=== PATIENT | female | born 1975 | race Caucasian/White ===

== ENCOUNTER 2016-10-05 16:17 | Emergency (ER) | payer MEDICAID ==
[~2016-10-05] VITALS: Ht 157.5 cm; Wt 113.0 kg
[~2016-10-05 16:17] MED LIST: BENA25CA2 PO; DIPH25CA PO; PRAV20TA2 PO; REME15TA PO
[2016-10-05 16:29] VITALS: BP 129/97; PULSE 88; RESP 16; TEMP 98.5; O2SAT 96
[2016-10-05] MEDS ORDERED: SODIUM CHLORIDE 0.9% FLUSH 10 ML FLUSH IVF PRN (17:45)
--- NOTE | 2016-10-05 17:46 | PD ---
HPI Chief Complaint: Eye Problems/Injury Time Seen by Provider: 17:07 Travel History International Travel<30 days: No Contact w/Intl Traveler<30days: No Traveled to known affect area: No History of Present Illness HPI Patient is a 41-year-old female who presents to emergency room with complaints of vision changes to her right eye. Reports that she woke up Tuesday morning and initially saw "flashing and squigly" lines from her right eye. Reports that she feels as if there is she is looking through a curtain at this time. Reports that she does have migraines twice a year and she did think that she was having a migraine. Patient reports that the migraine headache never came, reports that instead her vision changes worsened. Patient reports that she feels like she is looking through mud to her right eye, intermediate everything appears darker in her right eye. Patient reports that she went to her primary care doctor today and was told to go to emergency room for evaluation. Patient denies any trauma or fall. She reports that this has never happened in the past. [facility] Past Medical History Medical History: Denies Significant Hx Diminished Hearing: No Influenza Vaccination: Yes ?: Not LMP: 5 YRS AGO Menopausal: Yes Past Surgical History Surgical History: No Previous Surgery Social History Alcohol Use: Yes (SOCIAL) Tobacco Use: No Substance Use: No Allergies-Medications (Allergen,Severity, Reaction): Coded Allergies: Cortisone (Verified Allergy, Severe, hives, 10/05/16) Prednisone (Verified Allergy, Severe, hives, 10/05/16) Reported Meds & Prescriptions Reported Meds & Active Scripts Active Pravastatin 20 Mg Tab 20 Mg PO DAILY Reported Diphenhydramine (Diphenhydramine HCl) 25 Mg Cap 25 Mg PO HS PRN Review of Systems General / Constitutional: No: Fever Eyes: Positive: Visual changes HENT: No: Headaches Cardiovascular: No: Chest Pain or Discomfort Respiratory: No: Shortness of Breath Gastrointestinal: No: Abdominal Pain Genitourinary: No: Dysuria Musculoskeletal: No: Pain Skin: No Rash Neurologic: No: Weakness Psychiatric: No: Depression Endocrine: No: Polydipsia Hematologic/Lymphatic: No: Easy Bruising Physical Exam Narrative GENERAL: nad, nontoxic SKIN: Focused skin assessment warm/dry. HEAD: Atraumatic. Normocephalic. EYES: Pupils equal and round. No scleral icterus. No injection or drainage. ENT: No nasal bleeding or discharge. Mucous membranes pink and moist. NECK: Trachea midline. No JVD. CARDIOVASCULAR: Regular rate and rhythm. No murmur appreciated. RESPIRATORY: No accessory muscle use. Clear to auscultation. Breath sounds equal bilaterally. GASTROINTESTINAL: Abdomen soft, non-tender, nondistended. Hepatic and splenic margins not palpable. MUSCULOSKELETAL: No obvious deformities. No clubbing. No cyanosis. No edema. NEUROLOGICAL: Awake and alert. No obvious cranial nerve deficits. Motor grossly within normal limits. Normal speech. PSYCHIATRIC: Appropriate mood and affect; insight and judgment normal. Data Data Last Documented VS Vital Signs Date Time Temp Pulse Resp B/P Pulse Ox O2 Delivery O2 Flow Rate FiO2 10/05/16 16:29 98.5 88 16 129/97 96 Orders Prothrombin Time / Inr (Pt) (10/05/16 17:32) Act Partial Throm Time (Ptt) (10/05/16 17:32) Complete Blood Count With Diff (10/05/16 17:32) Comprehensive Metabolic Panel (10/05/16 17:32) Ct Brain W/O Iv Contrast(Rout) (10/05/16 17:32) Iv Access Insert/Monitor (10/05/16 17:32) Sodium Chloride 0.9% Flush (Ns Flush) (10/05/16 17:45) Ed Urine Pregnancytest Poc (10/05/16 17:32) ^ Visual Field Precautions (10/05/16 17:51) Labs Laboratory Tests Test 10/05/16 17:44 White Blood Count 3.8 TH/MM3 Red Blood Count 4.35 MIL/MM3 Hemoglobin 12.9 GM/DL Hematocrit 39.2 % Mean Corpuscular Volume 90.1 FL Mean Corpuscular Hemoglobin 29.7 PG Mean Corpuscular Hemoglobin 32.9 % Concent Red Cell Distribution Width 13.9 % Platelet Count 228 TH/MM3 Mean Platelet Volume 6.4 FL Neutrophils (%) (Auto) 66.8 % Lymphocytes (%) (Auto) 19.9 % Monocytes (%) (Auto) 8.6 % Eosinophils (%) (Auto) 4.2 % Basophils (%) (Auto) 0.5 % Neutrophils # (Auto) 2.5 TH/MM3 Lymphocytes # (Auto) 0.7 TH/MM3 Monocytes # (Auto) 0.3 TH/MM3 Eosinophils # (Auto) 0.2 TH/MM3 Basophils # (Auto) 0.0 TH/MM3 CBC Comment DIFF FINAL Differential Comment Prothrombin Time 10.9 SEC Prothromb Time International 1.0 RATIO Ratio Activated Partial 28.2 SEC Thromboplast Time Sodium Level 139 MEQ/L Potassium Level 3.6 MEQ/L Chloride Level 108 MEQ/L Carbon Dioxide Level 24.6 MEQ/L Anion Gap 6 MEQ/L Blood Urea Nitrogen 10 MG/DL Creatinine 0.63 MG/DL Estimat Glomerular Filtration 103 ML/MIN Rate Random Glucose 107 MG/DL Calcium Level 8.4 MG/DL Total Bilirubin 0.5 MG/DL Aspartate Amino Transf 18 U/L (AST/SGOT) Alanine Aminotransferase 29 U/L (ALT/SGPT) Alkaline Phosphatase 92 U/L Total Protein 7.3 GM/DL Albumin 3.3 GM/DL [facility] Medical Decision Making Medical Screen Exam Complete: Yes Emergency Medical Condition: Yes Interpretation(s) Vital Signs Date Time Temp Pulse Resp B/P Pulse Ox O2 Delivery O2 Flow Rate FiO2 10/05/16 16:29 98.5 88 16 129/97 96 Differential Diagnosis Renal artery detachment, retinal artery thrombosis, migraine, keratitis, retinal vein occlusion, optic neuritis Narrative Course Patient is a 41-year-old female who presents to emergency room for evaluation of vision changes. Patient reports that she is unable to see clearly from her right eye, that she woke up on Tuesday morning with the symptoms. She was seen by her primary care doctor today and was told to come directly to emergency room for evaluation. Patient does not wear contacts or glasses. Vital Signs Date Time Temp Pulse Resp B/P Pulse Ox O2 Delivery O2 Flow Rate FiO2 10/05/16 16:29 98.5 88 16 129/97 96 labs as well as ct ordered. there are concerns for retinal detachment as patient is complaining of an initial floaters in the right eye, and "swigily line" appearance to right eye. visual acuity left eye 20/20 right eye: 20/40 combines 20/[address] riley avila. Plan to have patient call the office in the morning, she'll be seen in the office, if patient does have a retinal artery detachment - she will be sent across the street to a retinal specialist. This was reviewed patient, patient agreeable to care. She will call Dr. Avila first thing in the morning for an appointment tomorrow. Diagnosis Primary Impression: Vision changes Referrals: Ellie Avila MD Additional Instructions: Please call Dr. Ellie Avila's office at 8AM for office visit tomorrow, you must be seen by the tool engineer tomorrow as there is concerns for right now artery detachment. Please let the office know that Dr. Avila is expecting to see you in the office tomorrow (first thing in the morning) Disposition: 01 DISCHARGE HOME Condition: Stable Radha Young DO October 05, 2016 17:46
[2016-10-05 17:52] LABS: AUTOMATED NEUTROPHIL # 2.5 TH/MM3 (1.8-7.7); BASOPHIL % 0.5 % (0.0-2.0); EOSINOPHIL # 0.2 TH/MM3 (0-0.4); EOSINOPHIL % 4.2 % (0.0-4.0); HEMATOCRIT 39.2 % (35.0-46.0); HEMO FLAGS DIFF FINAL; LYMPH % 19.9 % (9.0-44.0); LYMPHOCYTE # 0.7 TH/MM3 (1.0-4.8); MEAN CELL VOLUME 90.1 FL (80.0-100.0); MEAN CORPUSCULAR HEMOGLOBIN 29.7 PG (27.0-34.0); MEAN CORPUSCULAR HGB CONC 32.9 % (32.0-36.0); MONO % 8.6 % (0.0-8.0); NEUT % 66.8 % (16.0-70.0); PLATELET COUNT 228 TH/MM3 (150-450); RED BLOOD COUNT 4.35 MIL/MM3 (4.00-5.30); RED CELL DISTRIBUTION WIDTH 13.9 % (11.6-17.2); WHITE BLOOD COUNT 3.8 TH/MM3 (4.0-11.0)
[2016-10-05 18:08] LABS: CHLORIDE 108 MEQ/L (98-107); POTASSIUM 3.6 MEQ/L (3.5-5.1); SODIUM (NA) 139 MEQ/L (136-145)
[2016-10-05 18:12] LABS: ANION GAP 6 MEQ/L (5-15); BICARBONATE 24.6 MEQ/L (21.0-32.0); BLOOD UREA NITROGEN 10 MG/DL (7-18)
[2016-10-05 18:15] LABS: ALT (GPT) 29 U/L (10-53); AST (GOT) 18 U/L (15-37); GLOMERULAR FILTRATION RATE 103 ML/MIN (>89)
[2016-10-05 18:16] LABS: TOTAL BILIRUBIN ADULT 0.5 MG/DL (0.2-1.0)
[2016-10-05 18:18] LABS: ALKALINE PHOSPHATASE 92 U/L (45-117)
[2016-10-05 18:20] LABS: APTT (PATIENT) 28.2 SEC (24.3-30.1); PROTHROMBIN TIME - PATIENT 10.9 SEC (9.8-11.6)
--- NOTE | 2016-10-05 18:51 | RADHPO ---
EXAM DATE/TIME: 10/05/2016 18:13 [place] COMPARISON: No previous studies available for comparison. INDICATIONS : Right visual disturbance for four days. RADIATION DOSE: 65.12 CTDIvol (mGy) MEDICAL HISTORY : None SURGICAL HISTORY : None. ENCOUNTER: Initial ACUITY: 4 - 6 days PAIN SCALE: 0/10 LOCATION: cranial TECHNIQUE: Multiple contiguous axial images were obtained of the head. Using automated exposure control and adj ustment of the mA and/or kV according to patient size, radiation dose was kept as low as reasonably a chievable to obtain optimal diagnostic quality images. FINDINGS: CEREBRUM: The ventricles are normal for age. No evidence of midline shift, mass lesion, hemorrhage or acute in farction. No extra-axial fluid collections are seen. POSTERIOR FOSSA: The cerebellum and brainstem are intact. The 4th ventricle is midline. The cerebellopontine angle i s unremarkable. EXTRACRANIAL: The visualized portion of the orbits is intact. SKULL: The calvaria is intact. No evidence of skull fracture. CONCLUSION: Normal examination. Narayan Carrillo Jr., MD on October 05, 2016 at 18:48 Board Certified Radiologist. This report was verified electronically.
[2016-10-05 19:43] VITALS: BP 105/90
== END 2016-10-05 19:49 | disposition home or self-care (01) ==
LOC: PHED 16:17
DX: H43.391 Other vitreous opacities, right eye (principal); Z79.899 Other long term (current) drug therapy; Z88.5 Allergy status to narcotic agent
CPT/HCPCS: 70450; 80053; 84703; 85025; 85610; 85730

== ENCOUNTER 2017-01-11 20:18 | Emergency (ER) | payer MEDICAID ==
[~2017-01-11] VITALS: Ht 157.5 cm; Wt 115.7 kg
[~2017-01-11 20:18] MED LIST changes: -BENA25CA2 PO; -REME15TA PO
[2017-01-11 20:28] VITALS: BP 142/81; PULSE 81; RESP 18; TEMP 98.1
--- NOTE | 2017-01-11 21:06 | PD ---
HPI Chief Complaint: Cold / Flu Symptoms Time Seen by Provider: 20:44 Travel History International Travel<30 days: No Contact w/Intl Traveler<30days: No Traveled to known affect area: No History of Present Illness HPI 41-year-old female presents to the ED for evaluation of a 5 day history of sore throat. Patient endorses 2 day history of nausea intermittent vomiting. She complains of bilateral ear discomfort. She denies fever, chills, sinus congestion, rhinorrhea. Endorses chronic, nonproductive cough--worse with this illness. Endorses sick contacts, states daughter has similar symptoms. Treated at home with pseudoephedrine and Tylenol with no improvement of symptoms. PFSH Past Medical History High Cholesterol: Yes Diminished Hearing: No Tetanus Vaccination: > 5 Years Influenza Vaccination: Yes ?: Unknown LMP: approx end of October Menopausal: Yes Social History Alcohol Use: Yes (SOCIAL) Tobacco Use: No Substance Use: No Allergies-Medications (Allergen,Severity, Reaction): Coded Allergies: cortisone (Unverified Allergy, Severe, hives, 01/11/17) prednisone (Unverified Allergy, Severe, hives, 01/11/17) Reported Meds & Prescriptions Reported Meds & Active Scripts Active Sosa-D 24 Hour Allergy (Fexofenadine-Pseudoephedrine ER 24 HR) 180-240 Eitan 1 Tab PO DAILY Ibuprofen 600 Mg Tab 600 Mg PO Q8H 5 Days Magic Mouthwash Adult Liq (Multi-Ingredient Mouthwash/Gargle) 120 Ml Susp 5 Ml SWISH-SPIT ACHS 5 Days Each 5mL contains: Nystatin 200,000units, Diphenhydramine 4.25mg, Viscous Lidocaine 10mg, Funes syrup 0.8 mL Pravastatin 20 Mg Tab 20 Mg PO DAILY Review of Systems Except as stated in HPI: all other systems reviewed are Neg Physical Exam Narrative GENERAL: Well-nourished, well-developed obese white female in no acute distress. SKIN: Warm and dry. HEAD: Normocephalic. Atraumatic. EYES: No scleral icterus. No injection or drainage. PERRLA. EOMI. ENT: Pearly grover tympanic membranes bilaterally. Nasal mucosa is moist. Oropharynx with moderate posterior erythema. Tonsils 1+ bilaterally. No edema or exudate. Airway patent. Uvula midline. NECK: Supple, trachea midline. No JVD or lymphadenopathy. CARDIOVASCULAR: Regular rate and rhythm without murmurs, gallops, or rubs RESPIRATORY: Breath sounds clear and equal bilaterally. No accessory muscle use. GASTROINTESTINAL: Abdomen soft, non-tender, nondistended. + Bowel sounds MUSCULOSKELETAL: No cyanosis, or edema. BACK: Nontender without obvious deformity. No CVA tenderness. Data Data Last Documented VS Vital Signs Date Time Temp Pulse Resp B/P (MAP) Pulse Ox O2 Delivery O2 Flow Rate FiO2 01/11/17 20:35 Room Air 01/11/17 20:28 98.1 81 18 142/81 (101) Orders Orders Group A Rapid Strep Screen (01/11/17 20:43) Influenzae A/B Antigen (01/11/17 20:43) Strep Culture (Group A) (01/11/17 20:55) MDM Medical Decision Making Medical Screen Exam Complete: Yes Emergency Medical Condition: Yes Differential Diagnosis Viral syndrome versus pharyngitis versus influenza versus strep pharyngitis versus postnasal drip versus other Narrative Course 41-year-old female presents to the ED for evaluation of a 5 day history of sore throat. Patient endorses 2 day history of nausea intermittent vomiting. She complains of bilateral ear discomfort. She denies fever, chills, sinus congestion, rhinorrhea. Endorses chronic, nonproductive cough--worse with this illness. Endorses sick contacts, states daughter has similar symptoms. Vitals reviewed. Physical exam reveals moderate posterior oropharyngeal erythema but is otherwise unremarkable. Rapid strep and flu swabs negative. This is pharyngitis. Patient was prescribed Sosa-D, ibuprofen, Magic mouthwash. She is instructed take the medications as prescribed, follow up with an ENT should symptoms persist. She indicated understanding of instructions and is agreeable care plan. She is stable and discharged home. Diagnosis Primary Impression: Pharyngitis Qualified Codes: J02.9 - Acute pharyngitis, unspecified Referrals: Ear / Nose / Throat Specialist Patient Instructions: General Instructions, Pharyngitis (ED) Additional Instructions: Rest, hydrate. Take medications as prescribed. Follow-up with earthmoving labourer. Return to the ED for any urgent or emergent medical condition. Med/Other Pt SpecificInfo: Prescription(s) given Scripts Fexofenadine-Pseudoephedrine ER 24 HR (Sosa-D 24 Hour Allergy) 180-240 Eitan 1 TAB PO DAILY for Allergy Management, #15 TAB 0 Refills Prov: Nilsa Zavala MD 01/11/17 Ibuprofen (Ibuprofen) 600 Mg Tab 600 MG PO Q8H for 5 Days, TAB 0 Refills Prov: Nilsa Zavala MD 01/11/17 Chvkfiba-Juzexoziiagtopx-Qmqedhrcy Liq (Magic Mouthwash Adult Liq) 120 Ml Susp 5 ML SWISH-SPIT ACHS for Sore Throat for 5 Days, #120 ML 0 Refills Each 5mL contains: Nystatin 200,000units, Diphenhydramine 4.25mg, Viscous Lidocaine 10mg, Funes syrup 0.8 mL Prov: Nilsa Zavala MD 01/11/17 Disposition: 01 DISCHARGE HOME Condition: Stable Karissa Salinas Jan 11, 2017 21:06
[2017-01-11] MEDS ORDERED: MAGICADU2 SWISH-SPIT (21:28)
[2017-01-11] MEDS ORDERED: FEXO1TAB97 PO (21:28)
[2017-01-11] MEDS ORDERED: IBUP-232 PO (21:28)
== END 2017-01-11 21:51 | disposition home or self-care (01) ==
LOC: PHEFT 20:18
DX: J02.9 Acute pharyngitis, unspecified (principal); R11.2 Nausea with vomiting, unspecified; H92.01 Otalgia, right ear; H92.02 Otalgia, left ear; E78.00 Pure hypercholesterolemia, unspecified
CPT/HCPCS: 87081; 87804; 87880; 99283

== ENCOUNTER 2017-03-29 17:13 | Emergency (ER) | payer MEDICAID ==
[~2017-03-29] VITALS: Ht 157.5 cm; Wt 112.9 kg
[~2017-03-29 17:13] MED LIST changes: -DIPH25CA PO; +FEXO1TAB97 PO; +IBUP-232 PO; +MAGICADU2 SWISH-SPIT
[2017-03-29 17:21] VITALS: BP 130/66; PULSE 85; RESP 16; TEMP 98.2; O2SAT 97
[2017-03-29] MEDS ORDERED: [UNRECOGNIZED DRUG - OTHER] (17:35)
--- NOTE | 2017-03-29 18:40 | PD ---
HPI . LACERATION Chief Complaint: Laceration/Skin Injury Time Seen by Provider: 17:34 Travel History International Travel<30 days: No Contact w/Intl Traveler<30days: No Traveled to known affect area: No History of Present Illness HPI 41-year-old female presents emergency department for evaluation of a laceration she sustained to her fifth digit on her right hand approximately one hour ago when she was doing dishes and glass broke. Patient is up-to-date on her tetanus. Patient has full range of motion in the right hand and fifth digit. PFSH Past Medical History Autoimmune Disease: Yes (MS) High Cholesterol: Yes Diminished Hearing: No ?: Not LMP: 2-3 MONTHS AGO, IRREGULAR Menopausal: Yes Social History Alcohol Use: Yes (SOCIAL) Tobacco Use: No Substance Use: No Allergies-Medications (Allergen,Severity, Reaction): Coded Allergies: cortisone (Unverified Allergy, Severe, hives, 03/29/17) prednisone (Unverified Allergy, Severe, hives, 03/29/17) Reported Meds & Prescriptions Reported Meds & Active Scripts Active Reported [Avinex] Review of Systems Except as stated in HPI: all other systems reviewed are Neg Physical Exam Narrative GENERAL: Well-nourished, well-developed 41-year-old female patient in no acute distress. Nontoxic appearing. SKIN: 1 cm laceration to dorsal aspect of fifth digit on right hand. HEAD: Normocephalic. Atraumatic. EYES: No scleral icterus. No injection or drainage. NECK: Supple, trachea midline. No JVD or lymphadenopathy. CARDIOVASCULAR: Regular rate and rhythm without murmurs, gallops, or rubs. RESPIRATORY: Breath sounds equal bilaterally. No accessory muscle use. GASTROINTESTINAL: Abdomen soft, non-tender, nondistended. MUSCULOSKELETAL: Full range of motion noted to right hand and fifth digit on right hand No cyanosis, ecchymosis, obvious deformity, or edema. BACK: Nontender without obvious deformity. No CVA tenderness. Data Data Last Documented VS Vital Signs Date Time Temp Pulse Resp B/P (MAP) Pulse Ox O2 Delivery O2 Flow Rate FiO2 03/29/17 17:21 98.2 85 16 130/66 (87) 97 Orders Orders Wound Care (03/29/17 17:53) Ed Discharge Order (03/29/17 18:40) MDM Medical Decision Making Medical Screen Exam Complete: Yes Emergency Medical Condition: Yes Differential Diagnosis Differential diagnoses include but not limited to laceration, cellulitis, wound repair Narrative Course 41-year-old female presents emergency department for evaluation of a finger laceration. Laceration was soaked in half normal saline half Betadine her several minutes to thoroughly irrigate and clean it. Laceration was repaired with Dermabond. Please see my procedural narrative. She was discharged home with instructions to keep the wound clean and dry, return to emergency Department with any worsening condition but otherwise follow-up primary care. Procedures Procedure Narrative LACERATION LOCATION: Dorsal aspect fifth digit on right hand LENGTH: 1 cm Repaired with Dermabond REPAIR: The area of the laceration was prepped with Betadine and sterilely draped. The wound was copiously irrigated and explored without evidence of foreign body, tendon injury or neurovascular injury. The wound was closed using Dermabond. This was a single layer repair. The patient was advised to keep the wound clean and dry. Patient tolerated the procedure well. Diagnosis Primary Impression: Finger laceration Qualified Codes: S61.214A - Laceration without foreign body of right ring finger without damage to nail, initial encounter Referrals: Primary Care Physician Patient Instructions: Finger Laceration (ED), General Instructions Additional Instructions: Please return to emergency department if your symptoms return or worsen. Follow up with your primary care provider. Keep wound clean and dry. Disposition: 01 DISCHARGE HOME Condition: Stable DiegoNilsa medrano Ana M JOHNSON Mar 29, 2017 18:40
== END 2017-03-29 18:50 | disposition home or self-care (01) ==
LOC: PHEFT 17:13
DX: S61.214A Laceration without foreign body of right ring finger without damage to nail, initial encounter (principal); W25.XXXA Contact with sharp glass, initial encounter; Y93.G1 Activity, food preparation and clean up
CPT/HCPCS: 12001